=== PATIENT | male | born 2000 | race Caucasian/White ===

== ENCOUNTER 2021-12-12 13:54 | Emergency (ER) | payer MEDICAID ==
[~2021-12-12] VITALS: Ht 175.3 cm; Wt 68.2 kg
[2021-12-12 17:00] VITALS: BP 128/72
[2021-12-12] MEDS ORDERED: ACETAMINOPHEN 500 MG TABLET PO ONE (17:00)
== END 2021-12-12 17:59 | disposition home or self-care (01) ==
LOC: EMS 13:54
DX: H92.02 Otalgia, left ear (principal); F15.90 Other stimulant use, unspecified, uncomplicated; F17.210 Nicotine dependence, cigarettes, uncomplicated
CPT/HCPCS: 99283

== ENCOUNTER 2021-12-13 12:01 | Emergency (ER) | payer MEDICAID ==
[~2021-12-13] VITALS: Ht 177.8 cm; Wt 70.5 kg
[2021-12-13 14:35] VITALS: BP 131/66
[2021-12-13] MEDS ORDERED: ACETAMINOPHEN 500 MG TABLET PO ONE (14:45)
[2021-12-13 14:50] LABS: BASOPHILS % (AUTO) 0.5 % (0.0-2.0); EOSINOPHILS % (AUTO) 1.6 % (1.0-6.0); HEMATOCRIT 46.8 % (41-53); HEMOGLOBIN 15.7 g/dL (13.5-17.5); LYMPHOCYTES # (AUTO) 1.5 K/uL (1.0-4.8); LYMPHOCYTES % (AUTO) 23.7 % (22.0-44.0); MEAN CORPUSCULAR HEMOGLOBIN 30.8 pg (26.0-34.0); MEAN CORPUSCULAR HGB CONC 33.6 G/dL (31.0-37.0); MEAN CORPUSCULAR VOLUME 92 fL (80-100); MONOCYTES # (AUTO) 0.3 K/uL (0.1-1.0); MONOCYTES % (AUTO) 5.3 % (2.0-9.0); NEUTROPHILS # (AUTO) 4.4 K/uL (1.8-7.7); NEUTROPHILS % (AUTO) 68.9 % (40.0-70.0); PLATELET COUNT (AUTO) 303 K/uL (150-450); RED CELL DISTRIBUTION WIDTH 13.4 % (11.5-14.5)
[2021-12-13 14:58] LABS: ANION GAP 5 mmol/L (8-16); CALCIUM, TOTAL 9.2 mg/dL (8.8-10.5); CARBON DIOXIDE 32 mmol/L (22-29); CHLORIDE 103 mmol/L (98-107); CREATININE 0.87 mg/dL (0.60-1.30); GLOMERULAR FILTR. RATE CALC > 60 mL/min (>60); GLUCOSE,RANDOM 86 mg/dL (70-110); SODIUM SERUM 140 mmol/L (136-145); UREA NITROGEN, BLOOD 13 mg/dL (7-18)
[2021-12-13 15:04] LABS: ALANINE AMINOTRANSFERASE 20 U/L (12-78); ALBUMIN 4.4 g/dL (3.4-5.0); ALKALINE PHOSPHATASE 87 U/L (46-116); ASPARTATE AMINOTRANSFERASE 17 U/L (15-37); BILIRUBIN,TOTAL 0.7 mg/dL (0.1-1.0)
[2021-12-13 15:50] LABS: AMPHET/METH SCREEN,URINE NEGATIVE (NEGATIVE); BARBITURATE SCREEN, URINE NEGATIVE (NEGATIVE); BENZODIAZEPINES SCREEN,URINE NEGATIVE (NEGATIVE); CANNABINOID SCREEN,URINE NEGATIVE (NEGATIVE); COCAINE SCREEN,URINE NEGATIVE (NEGATIVE); METHADONE SCREEN, URINE NEGATIVE (NEGATIVE); OPIATE SCREEN,URINE NEGATIVE (NEGATIVE)
[2021-12-13 15:53] LABS: PHENCYCLIDINE SCREEN,URINE NEGATIVE (NEGATIVE)
[2021-12-13 18:12] LABS: COVID AG,FIA SOURCE NASOPHARYNGEAL
== END 2021-12-13 18:03 | disposition home or self-care (01) ==
LOC: EMS 12:01
DX: F20.9 Schizophrenia, unspecified (principal); F17.210 Nicotine dependence, cigarettes, uncomplicated; F15.90 Other stimulant use, unspecified, uncomplicated; Z20.822 Contact with and (suspected) exposure to COVID-19
CPT/HCPCS: 99284; 87426; 80053; 85025; 36415; 80307; G0480; C9803

== ENCOUNTER 2021-12-14 12:22 | Inpatient (IN) | payer MEDICAID ==
[~2021-12-14] VITALS: Ht 177.8 cm; Wt 67.0 kg
[2021-12-14 13:07] LABS: COVID AG,FIA SOURCE NASOPHARYNGEAL
[2021-12-14 13:09] LABS: BASOPHILS % (AUTO) 0.3 % (0.0-2.0); EOSINOPHILS % (AUTO) 1.5 % (1.0-6.0); HEMATOCRIT 46.7 % (41-53); HEMOGLOBIN 15.9 g/dL (13.5-17.5); LYMPHOCYTES # (AUTO) 1.3 K/uL (1.0-4.8); LYMPHOCYTES % (AUTO) 25.1 % (22.0-44.0); MEAN CORPUSCULAR HGB CONC 34.1 G/dL (31.0-37.0); MEAN CORPUSCULAR VOLUME 91 fL (80-100); MONOCYTES # (AUTO) 0.3 K/uL (0.1-1.0); MONOCYTES % (AUTO) 5.7 % (2.0-9.0); NEUTROPHILS # (AUTO) 3.6 K/uL (1.8-7.7); NEUTROPHILS % (AUTO) 67.4 % (40.0-70.0); PLATELET COUNT (AUTO) 298 K/uL (150-450); RED BLOOD CELL COUNT(AUTO) 5.12 MIL/uL (4.50-5.90); RED CELL DISTRIBUTION WIDTH 13.7 % (11.5-14.5)
[2021-12-14 13:19] LABS: CALCIUM, TOTAL 8.8 mg/dL (8.8-10.5); CARBON DIOXIDE 30 mmol/L (22-29); CREATININE 0.92 mg/dL (0.60-1.30); GLUCOSE,RANDOM 86 mg/dL (70-110); UREA NITROGEN, BLOOD 12 mg/dL (7-18)
[2021-12-14 13:25] LABS: ALANINE AMINOTRANSFERASE 20 U/L (12-78); ALBUMIN 4.1 g/dL (3.4-5.0); ALKALINE PHOSPHATASE 80 U/L (46-116); ASPARTATE AMINOTRANSFERASE 17 U/L (15-37); BILIRUBIN,TOTAL 0.7 mg/dL (0.1-1.0); TOTAL PROTEIN, SERUM 7.6 g/dL (6.4-8.2)
[2021-12-14 13:26] LABS: ANION GAP 7 mmol/L (8-16); CHLORIDE 101 mmol/L (98-107); GLOMERULAR FILTR. RATE CALC > 60 mL/min (>60); POTASSIUM 3.9 mmol/L (3.5-5.1); SODIUM SERUM 138 mmol/L (136-145)
[2021-12-14] MEDS ORDERED: LORazepam 1 MG TABLET PO ONE (14:30)
[2021-12-14] MEDS ORDERED: OLANZapine 5 MG TABLET PO ONE (14:30)
[2021-12-14 16:15] LABS: APPEARANCE,URINE CLEAR (CLEAR); BILIRUBIN,URINE NEGATIVE (NEGATIVE); GLUCOSE, URINE (UA) NEGATIVE (NEGATIVE); KETONES,URINE 40-60 mg/dL (NEGATIVE); LEUKOCYTE ESTERASE ,URINE NEGATIVE (NEGATIVE); NITRATE,URINE NEGATIVE (NEGATIVE); OCCULT BLOOD,URINE NEGATIVE (NEGATIVE); PROTEIN,URINE NEGATIVE (NEGATIVE); SPECIFIC GRAVITIY, URINE 1.015 (1.003-1.030)
[2021-12-14 16:33] LABS: AMPHET/METH SCREEN,URINE NEGATIVE (NEGATIVE); BARBITURATE SCREEN, URINE NEGATIVE (NEGATIVE); BENZODIAZEPINES SCREEN,URINE NEGATIVE (NEGATIVE); CANNABINOID SCREEN,URINE NEGATIVE (NEGATIVE); COCAINE SCREEN,URINE NEGATIVE (NEGATIVE); METHADONE SCREEN, URINE NEGATIVE (NEGATIVE); OPIATE SCREEN,URINE NEGATIVE (NEGATIVE); PHENCYCLIDINE SCREEN,URINE NEGATIVE (NEGATIVE)
[2021-12-14 16:42] VITALS: BP 117/71
[2021-12-15] MEDS ORDERED: MAG HYDROX/AL HYDROX/SIMETH ES 30 ML SUSPENSION UDCUP PO PRN (07:00)
[2021-12-15] MEDS ORDERED: MAGNESIUM HYDROXIDE SUSPENSION 30 ML UDCUP PO PRN (07:00)
[2021-12-15] MEDS ORDERED: NICOTINE 14 MG/24 HOUR PATCH TD PRN (07:00)
[2021-12-15] MEDS ORDERED: LOPERAMIDE HCL 2 MG CAPSULE PO PRN (07:00)
[2021-12-15] MEDS ORDERED: ALBUTEROL SULFATE HFA 90 MCG/PUFF 8 GM INHALER IH PRN (07:00)
[2021-12-15] MEDS ORDERED: GuaiFENesin/D-METHORPHAN [SUGAR-FREE] 200-20MG/10 ML SYRUP UDCUP PO PRN (07:00)
[2021-12-15] MEDS ORDERED: IBUPROFEN 400 MG TABLET PO PRN (07:00)
[2021-12-15] MEDS ORDERED: CloNIDine HCL 0.1 MG TABLET PO PRN (07:00)
[2021-12-15] MEDS ORDERED: ONDANSETRON HCL 4 MG TABLET PO PRN (07:00)
[2021-12-15] MEDS ORDERED: ACETAMINOPHEN 325 MG TABLET PO PRN (07:00)
[2021-12-15] MEDS ORDERED: PETROLATUM,WHITE 28 GM JELLY TP PRN (07:00)
[2021-12-15] MEDS ORDERED: DOCUSATE SODIUM 100 MG CAPSULE PO PRN (07:00)
[2021-12-15 08:00] VITALS: BP 105/60
[2021-12-15] MEDS: ARIPiprazole 5 MG TABLET PO SCH (16:27)
[2021-12-16 08:00] VITALS: BP 115/70
[2021-12-16] MEDS: ARIPiprazole 5 MG TABLET PO SCH (08:53)
[2021-12-17 08:30] VITALS: BP 119/67
[2021-12-17] MEDS: ARIPiprazole 5 MG TABLET PO SCH (08:47)
[2021-12-17] MEDS: ZOLPIDEM TARTRATE 10 MG TABLET PO PRN (21:59)
[2021-12-18 08:00] VITALS: BP 114/69
[2021-12-18] MEDS: ARIPiprazole 5 MG TABLET PO SCH (09:41)
[2021-12-18] MEDS: SERTRALINE HCL 50 MG TABLET PO SCH (11:07)
[2021-12-18 16:00] VITALS: BP 167/69
[2021-12-18] MEDS: ZOLPIDEM TARTRATE 10 MG TABLET PO PRN (20:32)
[2021-12-19 08:00] VITALS: BP 137/100
[2021-12-19] MEDS: ARIPiprazole 5 MG TABLET PO SCH (08:34)
[2021-12-19] MEDS: SERTRALINE HCL 50 MG TABLET PO SCH (08:35)
[2021-12-19 16:00] VITALS: BP 123/66
[2021-12-19] MEDS: ZOLPIDEM TARTRATE 10 MG TABLET PO PRN (20:31)
[2021-12-20 06:39] LABS: COVID AG,FIA SOURCE NASAL SWAB
[2021-12-20 08:00] VITALS: BP 128/73
[2021-12-20] MEDS: SERTRALINE HCL 50 MG TABLET PO SCH (08:06)
[2021-12-20] MEDS: ARIPiprazole 5 MG TABLET PO SCH (08:06)
[2021-12-20] MEDS ORDERED: ARIP5TAB37 PO (09:27)
[2021-12-20] MEDS ORDERED: SERT-439 PO (09:27)
[2021-12-20] MEDS: LORazepam 2 MG TABLET PO PRN (10:18)
[2021-12-20 16:36] VITALS: BP 122/67
[2021-12-20] MEDS: ZOLPIDEM TARTRATE 10 MG TABLET PO PRN (20:12)
[2021-12-21 08:14] VITALS: BP 138/89
[2021-12-21] MEDS: SERTRALINE HCL 50 MG TABLET PO SCH (08:19)
[2021-12-21] MEDS: ARIPiprazole 5 MG TABLET PO SCH (08:19)
[2021-12-21] MEDS: LORazepam 2 MG TABLET PO PRN (16:12)
[2021-12-21 16:45] VITALS: BP 121/69
[2021-12-21] MEDS: ZOLPIDEM TARTRATE 10 MG TABLET PO PRN (20:12)
[2021-12-22] MEDS: SERTRALINE HCL 50 MG TABLET PO SCH (07:57)
[2021-12-22] MEDS: ARIPiprazole 5 MG TABLET PO SCH (07:57)
[2021-12-22 09:27] VITALS: BP 130/81
[2021-12-22] MEDS: LORazepam 2 MG TABLET PO PRN ×2 (11:48→15:57)
[2021-12-22 16:18] VITALS: BP 123/68
[2021-12-22] MEDS: ZOLPIDEM TARTRATE 10 MG TABLET PO PRN (20:41)
[2021-12-23] MEDS: SERTRALINE HCL 50 MG TABLET PO SCH (08:30)
[2021-12-23] MEDS: ARIPiprazole 5 MG TABLET PO SCH (08:30)
[2021-12-23] MEDS: LORazepam 2 MG TABLET PO PRN ×2 (08:31→16:21)
[2021-12-23 09:39] VITALS: BP 112/76
[2021-12-23 16:21] VITALS: BP 122/82
[2021-12-23] MEDS: ZOLPIDEM TARTRATE 10 MG TABLET PO PRN (21:16)
[2021-12-24] MEDS: ARIPiprazole 5 MG TABLET PO SCH (09:01)
[2021-12-24] MEDS: SERTRALINE HCL 50 MG TABLET PO SCH (09:01)
[2021-12-24 09:23] VITALS: BP 131/79
[2021-12-24 16:09] VITALS: BP 99/69
[2021-12-25] MEDS: SERTRALINE HCL 50 MG TABLET PO SCH (08:26)
[2021-12-25] MEDS: ARIPiprazole 5 MG TABLET PO SCH (08:26)
[2021-12-25 09:20] VITALS: BP 128/69
[2021-12-25] MEDS: HALOPERIDOL 5 MG TABLET PO PRN ×2 (09:32→17:24)
[2021-12-25 16:36] VITALS: BP 115/70
[2021-12-25] MEDS: LORazepam 2 MG TABLET PO PRN (17:24)
[2021-12-26 08:30] VITALS: BP 108/71
[2021-12-26] MEDS: SERTRALINE HCL 50 MG TABLET PO SCH (09:30)
[2021-12-26] MEDS: ARIPiprazole 5 MG TABLET PO SCH (09:30)
[2021-12-26 16:37] VITALS: BP 110/75
[2021-12-26 16:38] VITALS: BP 110/75
[2021-12-27 08:00] VITALS: BP 104/62
[2021-12-27] MEDS: SERTRALINE HCL 50 MG TABLET PO SCH (08:24)
[2021-12-27] MEDS: ARIPiprazole 5 MG TABLET PO SCH (08:24)
[2021-12-27 16:00] VITALS: BP 111/54
[2021-12-27] MEDS: ZOLPIDEM TARTRATE 10 MG TABLET PO PRN (20:03)
[2021-12-28 07:46] LABS: COVID AG,FIA SOURCE NASAL SWAB
[2021-12-28 08:00] VITALS: BP 125/75
[2021-12-28] MEDS: SERTRALINE HCL 50 MG TABLET PO SCH (08:35)
[2021-12-28] MEDS: ARIPiprazole 5 MG TABLET PO SCH (08:35)
[2021-12-28 16:35] VITALS: BP 123/68
[2021-12-29] MEDS: HALOPERIDOL 5 MG TABLET PO PRN (00:21)
[2021-12-29 08:00] VITALS: BP 111/56
[2021-12-29] MEDS: SERTRALINE HCL 50 MG TABLET PO SCH (08:50)
[2021-12-29] MEDS: ARIPiprazole 5 MG TABLET PO SCH (08:50)
[2021-12-29 16:12] VITALS: BP 95/52
[2021-12-30 08:05] VITALS: BP 139/82
[2021-12-30] MEDS: ARIPiprazole 5 MG TABLET PO SCH (08:08)
[2021-12-30] MEDS: SERTRALINE HCL 50 MG TABLET PO SCH (08:08)
[2021-12-30 09:15] VITALS: BP 139/82
[2021-12-30] MEDS: HALOPERIDOL 5 MG TABLET PO PRN (10:08)
== END 2021-12-30 13:00 | disposition home or self-care (01) | DRG 753 ==
LOC: EMS 12:22 → 3EI 14:47
PROVIDERS: ADMIT Psychiatry & Neurology Psychiatry; ATTEND Psychiatry & Neurology Psychiatry
DX: F31.4 Bipolar disorder, current episode depressed, severe, without psychotic features (principal); R45.850 Homicidal ideations; R45.851 Suicidal ideations; F10.10 Alcohol abuse, uncomplicated; F17.200 Nicotine dependence, unspecified, uncomplicated; Z20.822 Contact with and (suspected) exposure to COVID-19; F20.9 Schizophrenia, unspecified; G47.00 Insomnia, unspecified; Z71.6 Tobacco abuse counseling; Z59.00 Homelessness unspecified; Z79.899 Other long term (current) drug therapy; Z81.8 Family history of other mental and behavioral disorders
CPT/HCPCS: 80053; 81003; 85025; 99285; G0480

== ENCOUNTER 2021-12-30 13:59 | Emergency (ER) | payer MEDICAID ==
[~2021-12-30 13:59] MED LIST: ARIP5TAB37 PO; SERT-439 PO
== END 2021-12-30 14:30 | disposition left against medical advice (07) ==
LOC: EMS 14:03
DX: Z53.21 Procedure and treatment not carried out due to patient leaving prior to being seen by health care provider (principal)

== ENCOUNTER 2021-12-31 06:36 | Emergency (ER) | payer MEDICAID ==
[~2021-12-31] VITALS: Ht 177.8 cm; Wt 59.0 kg
[2021-12-31 08:20] LABS: BASOPHILS % (AUTO) 0.6 % (0.0-2.0); EOSINOPHILS % (AUTO) 1.8 % (1.0-6.0); HEMATOCRIT 44.8 % (41-53); HEMOGLOBIN 15.1 g/dL (13.5-17.5); LYMPHOCYTES # (AUTO) 1.5 K/uL (1.0-4.8); LYMPHOCYTES % (AUTO) 23.7 % (22.0-44.0); MEAN CORPUSCULAR HGB CONC 33.7 G/dL (31.0-37.0); MEAN CORPUSCULAR VOLUME 92 fL (80-100); MONOCYTES # (AUTO) 0.5 K/uL (0.1-1.0); MONOCYTES % (AUTO) 7.5 % (2.0-9.0); NEUTROPHILS # (AUTO) 4.1 K/uL (1.8-7.7); NEUTROPHILS % (AUTO) 66.4 % (40.0-70.0); PLATELET COUNT (AUTO) 278 K/uL (150-450); RED BLOOD CELL COUNT(AUTO) 4.88 MIL/uL (4.50-5.90); RED CELL DISTRIBUTION WIDTH 13.8 % (11.5-14.5)
[2021-12-31 08:32] LABS: ANION GAP 5 mmol/L (8-16); CALCIUM, TOTAL 8.9 mg/dL (8.8-10.5); CARBON DIOXIDE 30 mmol/L (22-29); CHLORIDE 105 mmol/L (98-107); CREATININE 0.93 mg/dL (0.60-1.30); GLUCOSE,RANDOM 97 mg/dL (70-110); POTASSIUM 3.7 mmol/L (3.5-5.1); SODIUM SERUM 140 mmol/L (136-145); UREA NITROGEN, BLOOD 14 mg/dL (7-18)
[2021-12-31 08:37] LABS: GLOMERULAR FILTR. RATE CALC > 60 mL/min (>60)
[2021-12-31 08:38] LABS: ALANINE AMINOTRANSFERASE 17 U/L (12-78); ALBUMIN 4.1 g/dL (3.4-5.0); ALKALINE PHOSPHATASE 74 U/L (46-116); ASPARTATE AMINOTRANSFERASE 17 U/L (15-37); BILIRUBIN,TOTAL 0.5 mg/dL (0.1-1.0); TOTAL PROTEIN, SERUM 7.3 g/dL (6.4-8.2)
[2021-12-31 08:58] LABS: AMPHET/METH SCREEN,URINE NEGATIVE (NEGATIVE); BARBITURATE SCREEN, URINE NEGATIVE (NEGATIVE); BENZODIAZEPINES SCREEN,URINE NEGATIVE (NEGATIVE); CANNABINOID SCREEN,URINE NEGATIVE (NEGATIVE); COCAINE SCREEN,URINE NEGATIVE (NEGATIVE); METHADONE SCREEN, URINE NEGATIVE (NEGATIVE); OPIATE SCREEN,URINE NEGATIVE (NEGATIVE); PHENCYCLIDINE SCREEN,URINE NEGATIVE (NEGATIVE)
[2021-12-31 10:30] LABS: COVID AG,FIA SOURCE NASAL SWAB
[2021-12-31 13:01] VITALS: BP 125/71
== END 2021-12-31 13:13 | disposition home or self-care (01) ==
LOC: EMS 06:40
DX: F20.9 Schizophrenia, unspecified (principal); F17.210 Nicotine dependence, cigarettes, uncomplicated; F12.90 Cannabis use, unspecified, uncomplicated; F15.90 Other stimulant use, unspecified, uncomplicated; Z20.822 Contact with and (suspected) exposure to COVID-19
CPT/HCPCS: 99283; 87426; 80053; 85025; 36415; 80307; G0480

== ENCOUNTER 2022-01-30 16:10 | Emergency (ER) | payer MEDICAID ==
[~2022-01-30] VITALS: Ht 167.6 cm; Wt 65.9 kg
[2022-01-30 19:11] VITALS: BP 107/50
[2022-01-30] MEDS ORDERED: OLANZapine 5 MG TABLET PO ONE (21:00)
== END 2022-01-30 21:51 | disposition home or self-care (01) ==
LOC: EMS 16:10
DX: F31.9 Bipolar disorder, unspecified (principal); F10.20 Alcohol dependence, uncomplicated; F12.10 Cannabis abuse, uncomplicated; F15.10 Other stimulant abuse, uncomplicated; F17.210 Nicotine dependence, cigarettes, uncomplicated
CPT/HCPCS: 99284